=== PATIENT | female | born 1975 | race Caucasian/White ===

== ENCOUNTER 2022-06-14 04:00 | Day surgery (SDC) | payer BC, OTHER ==
[2022-06-12 15:56] VITALS: BMI 37.1
[2022-06-14] MEDS ORDERED: ACETAMINOPHEN 325 MG TABLET (FP) PO PRN (09:22)
[2022-06-14] MEDS ORDERED: IBUPROFEN 400 MG TABLET (FP) PO PRN (09:22)
[2022-06-14] MEDS ORDERED: PROPOFOL 20 ML ONE ×2 (09:37→09:42)
[2022-06-14] MEDS ORDERED: DEXAMETHASONE SOD PHOSPHATE 4 MG/1 ML VIAL ONE (09:38)
[2022-06-14] MEDS ORDERED: ONDANSETRON 4 MG/2 ML VIAL ONE (09:38)
[2022-06-14] MEDS ORDERED: KETOROLAC TROMETHAMINE 30 MG/1 ML VIAL ONE (10:03)
[2022-06-14] MEDS ORDERED: LACTATED RINGERS SOLUTION 1,000 ML IV SCH (10:15)
[2022-06-14] MEDS ORDERED: ONDANSETRON 4 MG/2 ML VIAL IVPUSH PRN (10:15)
[2022-06-14] MEDS ORDERED: oxyCODONE HCL 5 MG TABLET PO PRN ×2 (10:15)
[2022-06-14 11:21] VITALS: RESP 18
[2022-06-14 11:36] VITALS: TEMP 98.9
[2022-06-14 12:11] VITALS: BP 140/80; PULSE 78
== END 2022-06-14 13:20 | disposition home or self-care (01) ==
LOC: JASU-SURG 04:00
PROVIDERS: ATTEND Obstetrics & Gynecology
PROC: 0UDB8ZX Extraction of Endometrium, Via Natural or Artificial Opening Endoscopic, Diagnostic (ICD-10-PCS; principal; 2022-06-14 09:00)
DX: N93.9 Abnormal uterine and vaginal bleeding, unspecified (principal)
CPT/HCPCS: 81025; 88305-TC; 94760